=== PATIENT | male | born 1970 | race Hispanic/Latino ===

== ENCOUNTER 2018-06-23 11:43 | Emergency (ER) | payer OTHER ==
[2018-06-23 12:26] LABS: Band 2 % (5-11); Eosinophils 2 % (0-10); Hemoglobin 15.2 g/dL (14.0-18.0); Lymphocytes 31 % (21-51); MDiff Complete? YES; Mean Corpuscular HGB CONC 36.4 g/dL (32.0-36.0); Mean Corpuscular Hemoglobin 29.3 pg (27.0-31.0); Mean Corpuscular Volume 80.5 fL (78.0-98.0); Mean Platelet Volume 7.2 fL (7.4-10.4); Monocytes 2 % (0-10); Neutrophil 63 % (42-75); Platelet Count 244 thou/uL (130-400); RBC Distribution Width 11.2 % (11.5-14.5); Red Blood Cell (RBC) Count 5.17 mill/uL (4.70-6.10); White Blood Cell (WBC) Count 10.8 thou/uL (4.8-10.8)
[2018-06-23 12:29] LABS: Bilirubin Negative (Negative); Blood, Urine Negative (Negative); Clarity Clear (Clear); Glucose, Urine (Dipstick) Negative (Negative); Leukocyte Negative (Negative); Nitrite Negative (Negative); Protein, Urine (Dipstick) Negative (Neg-Trace); Specific Gravity, Urine 1.015 (1.005-1.030); pH, Urine 5.5 (5.0-9.0)
[2018-06-23] MEDS ORDERED: Ondansetron HCl/PF 4 MG/2 ML Vial ONE (12:29)
[2018-06-23 12:37] LABS: ALT (SGPT) 22 U/L (8-55); AST (SGOT) 17 U/L (5-34); Albumin 4.3 g/dL (3.5-5.0); Alkaline Phosphatase 78 U/L (40-150); Anion Gap 16 mmol/L (10-20); BUN (Urea Nitrogen) 36 mg/dL (8.9-20.6); Bilirubin, Total 0.7 mg/dL (0.2-1.2); Calc. Creatinine Clearance 0 mL/min (70-130); Calcium 9.5 mg/dL (7.8-10.44); Carbon Dioxide 22 mmol/L (22-29); Chloride 101 mmol/L (98-107); Estimated GFR-MDRD 34; Globulin 3.7 g/dL (2.4-3.5); Glucose 171 mg/dL (70-105); Lipase 79 U/L (8-78); Sodium 135 mmol/L (136-145)
== END 2018-06-23 13:38 | disposition home or self-care (01) ==
LOC: BURERS 11:43
DX: E86.0 Dehydration (principal); E11.9 Type 2 diabetes mellitus without complications; E78.5 Hyperlipidemia, unspecified; I10 Essential (primary) hypertension; F17.210 Nicotine dependence, cigarettes, uncomplicated; Z79.84 Long term (current) use of oral hypoglycemic drugs; Z79.899 Other long term (current) drug therapy
CPT/HCPCS: 36416; 80053; 81003; 83690; 85025; 96361; 96374; J2405